=== PATIENT | male | born 1990 | race Caucasian/White ===

== ENCOUNTER 2022-03-09 11:53 | Day surgery (SDC) | payer OTHER ==
[~2022-03-09] VITALS: Ht 188 cm; Wt 103.6 kg
[~2022-03-09 11:53] MED LIST: APAP325T4 PO; FISH1000 PO; MAGN200T PO; NS 1,000 ML IV ONE; OMEP1CAP73 PO; TURM1TAB PO; VITA100093 PO; VITMTA PO
[2022-03-09] MEDS ORDERED: fentaNYL 100 MCG/2 ML INJECTION As Ordered ONE (13:42)
[2022-03-09] MEDS ORDERED: propofoL 200 MG/20 ML VIAL As Ordered ONE (13:43)
[2022-03-09 14:44] VITALS: BP 145/87
== END 2022-03-09 14:44 | disposition home or self-care (01) ==
LOC: M OPP 11:53
PROVIDERS: ATTEND Internal Medicine Gastroenterology
DX: K20.0 Eosinophilic esophagitis (principal); R12 Heartburn; R13.10 Dysphagia, unspecified; Z79.899 Other long term (current) drug therapy; Z80.0 Family history of malignant neoplasm of digestive organs; Z80.42 Family history of malignant neoplasm of prostate; Z87.891 Personal history of nicotine dependence
CPT/HCPCS: 43239; 43249; 88305; J3010